=== PATIENT | female | born 1995 | race Caucasian/White ===

== ENCOUNTER 2025-04-01 20:38 | Emergency (ER) | payer OTHER ==
[~2025-04-01] VITALS: Ht 157.5 cm; Wt 75.0 kg
[2025-04-01 20:50] VITALS: TEMP 37; O2SAT 100
[2025-04-01] MEDS: KETOROLAC 30MG/ML VIAL IM ONE (22:29)
[2025-04-01 22:57] LABS: CLARITY URINE CLOUDY (CLEAR); COLOR URINE YELLOW (YELLOW); GLUCOSE URINE NEGATIVE (NEGATIVE); KETONES URINE TRACE (NEGATIVE); LEUKOCYTE ESTERASE URINE NEGATIVE (NEGATIVE); NITRITE URINE NEGATIVE (NEGATIVE); OCCULT BLOOD URINE NEGATIVE (NEGATIVE); PH URINE 5.5 (4.5-8.0); PROTEIN URINE TRACE (NEGATIVE); SPECIFIC GRAVITY URINE 1.036 (1.005-1.030); UROBILINOGEN URINE 1.0 E.U./dL (0.2-1.0)
[2025-04-01 23:04] LABS: BACTERIA URINE 1+; RBC URINE NONE SEEN /hpf (0-2); SQUAMOUS EPITHELIAL CELL URINE 1+ /lpf (RARE/1+); WBC URINE 0-2 /hpf (0-2)
[2025-04-02 00:07] LABS: BASOPHILS % 0.8 % (0.0-2.0); EOSINOPHILS % 3.3 % (0.0-5.0); HEMATOCRIT. 37.7 % (36.0-48.0); HEMOGLOBIN. 12.7 g/dL (12.0-16.0); LYMPHOCYTES % 34.9 % (20.0-50.0); MEAN PLATELET VOLUME 9.6 fl (7.4-10.4); MONOCYTES % 9.7 % (2.0-8.0); NEUTROPHILS % 51.3 % (40.0-76.0); PLATELET 307 x1000/uL (130-400); RED BLOOD CELL COUNT 3.81 mill/uL (4.2-5.4); RED CELL DISTRIBUTION WIDTH 12.9 % (11.6-14.6)
[2025-04-02 00:23] LABS: CREATININE 0.7 mg/dL (0.6-1.0); UREA NITROGEN BLOOD 9 mg/dL (9-23)
[2025-04-02] MEDS ORDERED: NAPR-1176 MT (00:30)
[2025-04-02] MEDS ORDERED: CYCL10TA21 MT (00:30)
[2025-04-02 01:01] VITALS: BP 139/79; PULSE 70; RESP 14; O2SAT 100
== END 2025-04-02 01:02 | disposition home or self-care (01) ==
LOC: ER 20:38
DX: M54.9 Dorsalgia, unspecified (principal)
CPT/HCPCS: 99284; 71045; 80048; 81003; 81025; 85025; 36415; 96372; J1885

== ENCOUNTER 2025-04-17 21:34 | Emergency (ER) | payer OTHER ==
[~2025-04-17] VITALS: Ht 152.4 cm; Wt 75.0 kg
[~2025-04-17 21:34] MED LIST: CYCL10TA21 MT; NAPR-1176 MT
[2025-04-17 22:53] VITALS: O2SAT 100
[2025-04-18] MEDS ORDERED: AMOX1TAB16 MT (00:56)
[2025-04-18 01:41] VITALS: BP 127/85; PULSE 73; RESP 16; TEMP 36.7; O2SAT 100
== END 2025-04-18 01:41 | disposition home or self-care (01) ==
LOC: ER 21:34
DX: L08.9 Local infection of the skin and subcutaneous tissue, unspecified (principal)
CPT/HCPCS: 99283